=== PATIENT | female | born 1990 | race Caucasian/White ===

== ENCOUNTER 2023-01-15 22:56 | Inpatient (IN) ==
[2023-01-15] MEDS ORDERED: OXYTOCIN 30 UNITS/500 ML BAG IV PRN (23:18)
[2023-01-15] MEDS ORDERED: LIDOCAINE 1% LOCAL 20 ML VIAL INFIL PRN (23:18)
[2023-01-15] MEDS ORDERED: LACTATED RINGER'S 1,000 ML IV PRN (23:18)
[2023-01-15] MEDS ORDERED: OXYTOCIN 30 UNITS/500ML NSS IV ONE (23:24)
[2023-01-16] MEDS ORDERED: HYDROCORTISONE ACETATE 25 MG SUPP PR PRN (00:31)
[2023-01-16] MEDS ORDERED: BENZOCAINE 20% AER SPR 82.5 GM CAN EXT PRN (00:31)
[2023-01-16] MEDS ORDERED: OXYTOCIN 30 UNITS/500 ML BAG IV PRN (00:31)
[2023-01-16] MEDS ORDERED: DIPHTHERIA/TETANUS/PERTUSSIS Vaccine (Tdap, Age 7+yrs) 0.5mL SYR/VL IM ONE (00:31)
[2023-01-16] MEDS ORDERED: ACETAMINOPHEN 325 MG TAB PO PRN (00:31)
[2023-01-16] MEDS ORDERED: MEASLES, MUMPS & RUBELLA VIRUS VIAL SQ ONE (00:31)
[2023-01-16] MEDS ORDERED: IBUPROFEN 600 MG TAB PO PRN (00:31)
--- NOTE | 2023-01-16 00:40 | Delivery Summary ---
Vaginal Delivery Summary Date of Service January 16, 2023 Vaginal Delivery Summary Patient is a 32-year-old -1-0-1 at 38 weeks and 6 days of gestation who presented to labor and delivery in active labor on January 15, 2023 at around 11 PM. Per her she has been having contractions for many days and leaking small amount of pinkish mucus fluid for the last 3 days and contractions got more regular and painful after 9 PM. Patient presented to labor and delivery her cervix was 6 to 7 cm dilated, 80% effaced, head was at minus 1 station with a large bulging bag at 23:13. She declines epidural for pain and she wanted to go natural. She has then spontaneous ruptured with clear fluid at 23:27 and cervix was fully dilated and had was found to be at +2 station. Patient had urge to push. She pushed through 2 contractions and delivered the head without faculty. The shoulders were delivered with minimal traction and the baby was handed to the mother at 23:33. The mouth and nose were suctioned, cord was clamped times and cut at 1 minute delay. The baby was moving and crying. Then the vagina perineum were checked for lacerations. There was a small first-degree laceration at the posterior fourchette/perineal skin. It was infiltrated with 1% lidocaine for local anesthesia and repaired with 3-0 Vicryl in a running fashion. Excellent hemostasis achieved. The rest of the vagina and labia were intact. Then the placenta was found to be in vagina, delivered spontaneously as intact and complete. Uterus was explored and found to be empty, lower segment was cleared of all clots and debris's, fundus was firm and EBL was 200 ml. Mom and baby tolerated procedure well, it was a viable male , Apgars 8/9 is weight is 7 pound 3 ounce. No complications happened. I was present during whole procedure. At the end of the procedure the sponge, needle and instrument count was correct x2.
[2023-01-16 00:48] LABS: Hemoglobin 13.9 g/dl (12.0-16.0); Mean Corpuscular Hemoglobin 32.7 pg (25.0-34.0); Mean Corpuscular Hgb Conc 34.8 g/dL (32.0-36.0); Mean Corpuscular Volume 94.1 fL (80.0-100.0); Mean Platelet Volume 11.3 fL (9.4-12.4); Platelet Count 161 K/uL (130-400); RDW Coefficient of Variation 12.8 % (11.5-14.5); RDW Standard Deviation 44.5 fL (36.4-46.3); Red Blood Count 4.25 M/uL (4.20-5.40); White Blood Count 12.46 K/ul (4.8-10.8)
[2023-01-16] MEDS ORDERED: LEVOTHYROXINE SODIUM 25 MCG TABLET PO SCH (06:30)
[2023-01-16] MEDS ORDERED: FERROUS SULFATE 325 MG TAB PO SCH (08:00)
[2023-01-16] MEDS ORDERED: PRENATAL VITAMIN 1 TAB PO SCH (08:00)
[2023-01-16] MEDS: DOCUSATE SODIUM 100 MG CAP PO SCH ×2 (08:19→20:00)
[2023-01-16] MEDS ORDERED: NON-FORMULARY MEDICATION (Prenat.Vits,Cal,Min-Iron-Folic Tablet) PO SCH (09:00)
--- NOTE | 2023-01-16 19:53 | Obstetrical Progress Note ---
Date of Service January 16, 2023 Assessment & Plan (1) Normal course: pt wishes to be discharged this PM no complaints Subjective Ambulation: ambulating normally Voiding: no voiding problems Passing Gas:: Yes Diet Tolerance:: regular diet Lochia:: Small Feeding Type:: breast feeding Review of Systems All systems reviewed & are unremarkable except as noted in HPI & below Physical Exam Constitutional WD/WN, vitals as above well developed and well nourished Eyes PERRL, conjunctivae normal, anicteric sclerae Neck trachea midline, no thyromegaly Respiratory normal respiratory effort, lungs clear to auscultation Auscultation: no crackles, no rales and no wheezes Cardiovascular RRR, no murmur, no edema Gastrointestinal (Abdomen) normal bowel sounds, soft, nontender, no hepatosplenomegaly Uterus is below umbilicus Musculoskeletal no cyanosis or clubbing, extremities motor strength 5/5 Skin no rashes, warm and dry Neurologic patellar DTR's 2+ bilat, sensation intact Psychiatric A+Ox3, euthymic affect Genitourinary normal external appearance Results & Data Vital Signs (Past 12 Hours) Vital Signs Temp Pulse Resp BP O2 Del Method 01/16/23 16:25 36.6 C 74 19 112/71 Room Air 01/16/23 13:15 37.2 C 80 18 114/66
[2023-01-16] MEDS ORDERED: SERTRALINE HCL 50 MG TABLET PO SCH (21:00)
[2023-01-17] MEDS ORDERED: bisacodyL 5 MG TABEC PO SCH (20:00)
[2023-01-18] MEDS ORDERED: bisacodyL 10 MG SUPP PR PRN
== END 2023-01-17 00:45 | disposition home or self-care (01) | DRG 807 ==
LOC: OPB 22:56 → 4S1 23:00 → 4E2 01-16 02:19